=== PATIENT | male | born 1985 | race African-American/Black ===

== ENCOUNTER 2016-12-11 16:59 | Inpatient (IN) | payer MEDICAID ==
[~2016-12-11] VITALS: Ht 175.3 cm; Wt 90.3 kg
[~2016-12-11 16:59] MED LIST: CLON0.1T PO; LABE100T PO; LORA2TAB2 PO
[2016-12-11] MEDS ORDERED: ONDANSETRON HCL 4MG/2ML VIAL IV STA (17:23)
[2016-12-11] MEDS ORDERED: KETOROLAC 30MG/ML VIAL IV STA (17:23)
[2016-12-11 18:13] LABS: HEMATOCRIT. 29.2 % (42.0-52.0); HEMOGLOBIN. 9.7 g/dL (14.0-18.0); MEAN CORPUSCULAR HEMOGLOBIN 27.9 pg (28.0-32.0); MEAN CORPUSCULAR VOLUME 84.3 fL (80.0-94.0); MEAN PLATELET VOLUME 9.6 fl (7.4-10.4); PLATELET 121 x1000/uL (130-400); RED BLOOD CELL COUNT 3.46 mill/uL (4.7-6.1); RED CELL DISTRIBUTION WIDTH 15.5 % (11.6-14.6)
[2016-12-11] MEDS ORDERED: LORAZEPAM 2MG/ML CPJ IV ONE (18:15)
[2016-12-11 18:20] LABS: INR 1.1; PROTHROMBIN TIME 11.9 sec (9.4-11.6)
[2016-12-11 18:27] LABS: CARBON DIOXIDE 29 mEq/L (21-32); CHLORIDE 97 mEq/L (98-107)
[2016-12-11] MEDS ORDERED: ONDANSETRON HCL 4MG/2ML VIAL IV ONE (19:00)
[2016-12-11] MEDS ORDERED: MORPHINE SULFATE 4 MG/ML CPJ (NOT FOR IM USE) IV ONE ×2 (19:00→21:00)
[2016-12-11 19:17] LABS: PLATELET ESTIMATE SLIGHTLY DECREASED
[2016-12-11] MEDS ORDERED: HYDRALAZINE 20MG/ML VIAL IV ONE (19:30)
[2016-12-11] MEDS ORDERED: KCL 10MEQ/50ML PREMIX 100 ML IV SCH (19:45)
[2016-12-11] MEDS ORDERED: METOCLOPRAMIDE HCL 10MG/2ML VIAL IV ONE (21:00)
[2016-12-12] VITALS (10 sets, daily range): BP systolic 148–200; BP diastolic 78–114
[2016-12-12] MEDS ORDERED: ONDANSETRON HCL 4MG/2ML VIAL IV PRN (00:15)
[2016-12-12] MEDS ORDERED: NITROGLYCERIN OINT 1GM/INCH UDPKT TD SCH (01:00)
[2016-12-12] MEDS: HYDROMORPHONE HCL/PF 2MG/ML CPJ IV PRN ×6 (01:11→21:48)
[2016-12-12] MEDS: HYDRALAZINE 20MG/ML VIAL IV PRN ×2 (01:19→06:27)
[2016-12-12 07:26] LABS: BASOPHILS % 0.3 % (0.0-2.0); EOSINOPHILS % 0.2 % (0.0-5.0); HEMATOCRIT. 27.7 % (42.0-52.0); HEMOGLOBIN. 9.1 g/dL (14.0-18.0); LYMPHOCYTES % 12.7 % (20.0-50.0); MEAN CORPUSCULAR VOLUME 85.4 fL (80.0-94.0); MEAN PLATELET VOLUME 10.1 fl (7.4-10.4); MONOCYTES % 10.1 % (2.0-8.0); NEUTROPHILS % 76.7 % (40.0-76.0); PLATELET 103 x1000/uL (130-400); RED BLOOD CELL COUNT 3.24 mill/uL (4.7-6.1); RED CELL DISTRIBUTION WIDTH 15.9 % (11.6-14.6)
[2016-12-12 07:55] LABS: CHLORIDE 96 mEq/L (98-107)
[2016-12-12 08:21] LABS: CARBON DIOXIDE 28 mEq/L (21-32); CREATINE KINASE 177 IU/L (39-308); CREATINE KINASE MB FRACTION 4.6 ng/mL (0.5-3.6)
[2016-12-12 08:33] LABS: TROPONIN I 0.41 ng/mL (0.00-0.04)
[2016-12-12] MEDS ORDERED: HYDR100T26 PO (09:32)
[2016-12-12] MEDS ORDERED: LABE100T PO (09:33)
[2016-12-12] MEDS ORDERED: LABETALOL HCL 200MG TABLET PO SCH (09:45)
[2016-12-12] MEDS: HYDRALAZINE HCL 100MG TABLET PO SCH ×2 (10:00→21:33)
[2016-12-12] MEDS ORDERED: LABETALOL HCL 200MG TABLET PO NR (10:15)
[2016-12-12] MEDS: NIFEDIPINE XL 30MG TAB PO SCH (13:35)
[2016-12-12] MEDS: PANTOPRAZOLE SODIUM 40 MG/VIAL IV SCH (14:30)
[2016-12-12] MEDS ORDERED: LABETALOL HCL 100MG TABLET PO SCH (21:00)
[2016-12-12] MEDS: LABETALOL HCL 200MG TABLET PO SCH (21:32)
[2016-12-12] MEDS ORDERED: DIPHENHYDRAMINE 50MG/ML VIAL IV NR (23:23)
[2016-12-13] VITALS (8 sets, daily range): BP systolic 152–199; BP diastolic 81–113
[2016-12-13] MEDS: HYDROMORPHONE HCL/PF 2MG/ML CPJ IV PRN ×4 (05:28→20:45)
[2016-12-13] MEDS: NIFEDIPINE XL 30MG TAB PO SCH (08:48)
[2016-12-13] MEDS: LABETALOL HCL 200MG TABLET PO SCH ×3 (08:48→20:30)
[2016-12-13] MEDS: HYDRALAZINE HCL 100MG TABLET PO SCH ×3 (08:48→20:30)
[2016-12-13] MEDS: PANTOPRAZOLE SODIUM 40 MG/VIAL IV SCH (09:15)
[2016-12-13] MEDS: HYDRALAZINE 20MG/ML VIAL IV PRN (09:28)
[2016-12-13] MEDS ORDERED: SIMETHICONE 40 MG/0.6 ML 30ML ONE ×2 (09:59→16:03)
[2016-12-13] MEDS ORDERED: FENTANYL CITRATE/PF 50MCG/ML 2ML VIAL ONE (09:59)
[2016-12-13] MEDS ORDERED: MIDAZOLAM HCL 5 MG/5 ML VIAL ONE (09:59)
[2016-12-13] MEDS ORDERED: FENTANYL CITRATE/PF 50MCG/ML 2ML VIAL IV PRN (10:31)
[2016-12-13] MEDS ORDERED: MIDAZOLAM HCL 5 MG/5 ML VIAL IV PRN (10:31)
[2016-12-13] MEDS ORDERED: SODIUM CHLORIDE 0.9% 10ML VIAL ONE (16:03)
[2016-12-14] VITALS (11 sets, daily range): BP systolic 139–202; BP diastolic 86–114
[2016-12-14] MEDS: HYDROMORPHONE HCL/PF 2MG/ML CPJ IV PRN ×6 (01:02→22:15)
[2016-12-14 07:36] LABS: BASOPHILS % 0.5 % (0.0-2.0); EOSINOPHILS % 3.6 % (0.0-5.0); HEMATOCRIT. 26.1 % (42.0-52.0); HEMOGLOBIN. 8.6 g/dL (14.0-18.0); LYMPHOCYTES % 19.7 % (20.0-50.0); MEAN CORPUSCULAR HEMOGLOBIN 27.8 pg (28.0-32.0); MEAN CORPUSCULAR VOLUME 84.6 fL (80.0-94.0); MONOCYTES % 12.1 % (2.0-8.0); NEUTROPHILS % 64.1 % (40.0-76.0); PLATELET 101 x1000/uL (130-400); RED BLOOD CELL COUNT 3.08 mill/uL (4.7-6.1); RED CELL DISTRIBUTION WIDTH 15.6 % (11.6-14.6)
[2016-12-14] MEDS: HYDRALAZINE HCL 100MG TABLET PO SCH ×3 (08:09→21:06)
[2016-12-14] MEDS: NIFEDIPINE XL 60MG TAB PO SCH ×3 (08:09→21:04)
[2016-12-14] MEDS: PANTOPRAZOLE SODIUM 40 MG/VIAL IV SCH ×2 (08:09→10:09)
[2016-12-14] MEDS: LABETALOL HCL 200MG TABLET PO SCH ×3 (08:09→21:13)
[2016-12-14] MEDS: METOCLOPRAMIDE HCL 10MG/2ML VIAL IV SCH ×2 (13:33→21:06)
[2016-12-14] MEDS: LOSARTAN POTASSIUM 100 MG TABLET PO SCH (15:07)
[2016-12-14] MEDS: HYDRALAZINE 20MG/ML VIAL IV PRN (18:27)
[2016-12-14] MEDS ORDERED: EPOETIN ALFA 10000UNITS/ML VIAL SUBCUT SCH (21:00)
[2016-12-15 02:00] VITALS: BP 175/107
[2016-12-15] MEDS: HYDROMORPHONE HCL/PF 2MG/ML CPJ IV PRN ×2 (02:24→06:03)
[2016-12-15 04:00] VITALS: BP 158/106
[2016-12-15] MEDS: METOCLOPRAMIDE HCL 10MG/2ML VIAL IV SCH (05:52)
[2016-12-15 06:00] VITALS: BP 169/102
[2016-12-15 08:00] VITALS: BP 152/97
[2016-12-15] MEDS: HYDRALAZINE HCL 100MG TABLET PO SCH (08:07)
[2016-12-15] MEDS: LABETALOL HCL 200MG TABLET PO SCH (08:07)
[2016-12-15] MEDS: NIFEDIPINE XL 60MG TAB PO SCH (08:07)
[2016-12-15] MEDS: PANTOPRAZOLE SODIUM 40 MG/VIAL IV SCH (08:07)
[2016-12-15] MEDS: LOSARTAN POTASSIUM 100 MG TABLET PO SCH (08:08)
[2016-12-15] MEDS ORDERED: HYDROCODONE/ACETAMINOPHEN 5/325MG TABLET PO PRN (09:15)
[2016-12-15 10:00] VITALS: BP 164/85
== END 2016-12-15 12:40 | disposition left against medical advice (07) | DRG 48 ==
LOC: ER 17:11 → 5EST 20:34 → ENRESERV 22:11
PROVIDERS: ADMIT Internal Medicine; ATTEND Internal Medicine
PROC: 0DB68ZX Excision of Stomach, Via Natural or Artificial Opening Endoscopic, Diagnostic (ICD-10-PCS; principal; 2016-12-13 10:00)
DX: E11.43 Type 2 diabetes mellitus with diabetic autonomic (poly)neuropathy (principal); J96.91 Respiratory failure, unspecified with hypoxia; N18.6 End stage renal disease; K92.0 Hematemesis; E11.21 Type 2 diabetes mellitus with diabetic nephropathy; I12.0 Hypertensive chronic kidney disease with stage 5 chronic kidney disease or end stage renal disease; K29.60 Other gastritis without bleeding; K31.84 Gastroparesis; E87.70 Fluid overload, unspecified; I16.0 Hypertensive urgency; E11.22 Type 2 diabetes mellitus with diabetic chronic kidney disease; D63.8 Anemia in other chronic diseases classified elsewhere; Z99.2 Dependence on renal dialysis; J45.909 Unspecified asthma, uncomplicated; E66.3 Overweight; K44.9 Diaphragmatic hernia without obstruction or gangrene; Z82.49 Family history of ischemic heart disease and other diseases of the circulatory system; G89.4 Chronic pain syndrome; Z87.19 Personal history of other diseases of the digestive system; Z91.19 Patient's noncompliance with other medical treatment and regimen; Z88.0 Allergy status to penicillin; Q27.30 Arteriovenous malformation, site unspecified; Z86.718 Personal history of other venous thrombosis and embolism; K55.20 Angiodysplasia of colon without hemorrhage
CPT/HCPCS: 36415; 71010; 74176; 80048; 80053; 82550; 82553; 83690; 84484; 85025; 85610; 88305; 88313; 93005; 93306; 96374; 96375; 96376; 99291; A4216; C9113; J0360; J0885; J1170; J1200; J1885; J2060; J2250; J2270; J2405; J2765; J3010; J3480; J7030

== ENCOUNTER 2017-08-19 20:23 | Inpatient (IN) | payer MEDICAID ==
[~2017-08-19] VITALS: Ht 172.7 cm; Wt 81.6 kg
[~2017-08-19 20:23] MED LIST changes: -CLON0.1T PO; +HYDR100T26 PO; -LORA2TAB2 PO
[2017-08-19] MEDS ORDERED: ONDANSETRON HCL 4MG/2ML VIAL IV STA (23:25)
[2017-08-19] MEDS ORDERED: MORPHINE SULFATE 4 MG/ML CPJ (NOT FOR IM USE) IV STA (23:25)
[2017-08-20 00:01] LABS: HEMATOCRIT. 21.9 % (42.0-52.0); HEMOGLOBIN. 7.3 g/dL (14.0-18.0); MEAN CORPUSCULAR HEMOGLOBIN 29.3 pg (28.0-32.0); MEAN CORPUSCULAR VOLUME 87.4 fL (80.0-94.0); RED CELL DISTRIBUTION WIDTH 16.4 % (11.6-14.6)
[2017-08-20] MEDS ORDERED: DIPHENHYDRAMINE 50MG/ML VIAL IV ONE (00:45)
[2017-08-20 01:06] LABS: MEAN PLATELET VOLUME 9.9 fl (7.4-10.4); PLATELET 139 x1000/uL (130-400)
[2017-08-20 01:19] LABS: PLATELET ESTIMATE NORMAL
[2017-08-20] MEDS ORDERED: HYDROCODONE/ACETAMINOPHEN 5/325MG TABLET PO ONE (03:45)
[2017-08-20 09:23] VITALS: BP 196/117
[2017-08-20 09:34] VITALS: BP 196/117
[2017-08-20] MEDS ORDERED: IPRATROPIUM/ALBUTEROL 0.5-3(2.5)MG/3ML NEB HHN PRN (10:00)
[2017-08-20] MEDS ORDERED: HYDROCODONE/ACETAMINOPHEN 5/325MG TABLET PO PRN (10:00)
[2017-08-20] MEDS ORDERED: ONDANSETRON HCL 4MG/2ML VIAL IV PRN (10:00)
[2017-08-20] MEDS ORDERED: MORPHINE SULFATE 2 MG/ML CPJ (NOT FOR IM USE) IV PRN (10:00)
[2017-08-20] MEDS: HEPARIN 5000 UNITS/ML VIAL SUBCUT SCH ×2 (10:15→21:00)
[2017-08-20] MEDS: MORPHINE SULFATE 4 MG/ML CPJ (NOT FOR IM USE) IV PRN ×3 (10:42→23:27)
[2017-08-20] MEDS: LABETALOL HCL 100MG TABLET PO SCH ×2 (11:30→21:32)
[2017-08-20] MEDS: HYDRALAZINE HCL 100MG TABLET PO SCH ×2 (11:30→21:32)
[2017-08-20 12:08] VITALS: BP 179/112
[2017-08-20] MEDS ORDERED: DIPHENHYDRAMINE 50MG/ML VIAL IV NR (13:40)
[2017-08-20 16:08] VITALS: BP 188/99
[2017-08-20] MEDS: CLONIDINE 0.1MG TABLET PO PRN (17:21)
[2017-08-20 20:00] VITALS: BP 179/99
[2017-08-20] MEDS: EPOETIN ALFA 10000UNITS/ML VIAL SUBCUT SCH (21:00)
[2017-08-21] VITALS: BP 137/77
[2017-08-21 04:00] VITALS: BP 147/82
[2017-08-21] MEDS: MORPHINE SULFATE 4 MG/ML CPJ (NOT FOR IM USE) IV PRN ×3 (05:30→18:35)
[2017-08-21] MEDS: OMEPRAZOLE 20MG CAPSULE EXTENDED RELEASE PO SCH (06:25)
[2017-08-21 08:00] VITALS: BP 163/70
[2017-08-21] MEDS: HEPARIN 5000 UNITS/ML VIAL SUBCUT SCH ×2 (09:00→21:00)
[2017-08-21] MEDS ORDERED: DIPHENHYDRAMINE 50MG/ML VIAL IV NR ×2 (09:30→10:00)
[2017-08-21 12:00] VITALS: BP 192/113
[2017-08-21 15:30] VITALS: BP 194/107
[2017-08-21] MEDS: HYDRALAZINE HCL 100MG TABLET PO SCH ×2 (16:12→22:42)
[2017-08-21] MEDS: LABETALOL HCL 100MG TABLET PO SCH ×2 (16:13→22:42)
[2017-08-21] MEDS ORDERED: MINOXIDIL 2.5MG TABLET PO SCH ×2 (17:30→21:15)
[2017-08-21] MEDS: CLONIDINE 0.1MG TABLET PO PRN (18:36)
[2017-08-21] MEDS ORDERED: DIPHENHYDRAMINE 50MG/ML VIAL IV SCH (21:15)
[2017-08-21 21:20] VITALS: BP 178/96
[2017-08-21 23:57] LABS: BASOPHILS % 0.7 % (0.0-2.0); EOSINOPHILS % 4.5 % (0.0-5.0); HEMATOCRIT. 24.3 % (42.0-52.0); HEMOGLOBIN. 8.1 g/dL (14.0-18.0); LYMPHOCYTES % 19.3 % (20.0-50.0); MEAN CORPUSCULAR HEMOGLOBIN 29.7 pg (28.0-32.0); MEAN CORPUSCULAR VOLUME 88.7 fL (80.0-94.0); MEAN PLATELET VOLUME 10.3 fl (7.4-10.4); MONOCYTES % 6.9 % (2.0-8.0); NEUTROPHILS % 68.6 % (40.0-76.0); PLATELET 125 x1000/uL (130-400); RED BLOOD CELL COUNT 2.74 mill/uL (4.7-6.1); RED CELL DISTRIBUTION WIDTH 16.3 % (11.6-14.6)
[2017-08-22] VITALS: BP 156/95
[2017-08-22 00:28] LABS: CREATINE KINASE MB FRACTION 3.5 ng/mL (0.5-3.6)
[2017-08-22] MEDS: MORPHINE SULFATE 4 MG/ML CPJ (NOT FOR IM USE) IV PRN ×4 (00:53→20:02)
[2017-08-22 06:29] VITALS: BP 144/86
[2017-08-22] MEDS: OMEPRAZOLE 20MG CAPSULE EXTENDED RELEASE PO SCH (06:53)
[2017-08-22] MEDS: HEPARIN 5000 UNITS/ML VIAL SUBCUT SCH ×2 (09:00→21:00)
[2017-08-22] MEDS: MINOXIDIL 2.5MG TABLET PO SCH (09:00)
[2017-08-22 13:00] VITALS: BP 154/104
[2017-08-22] MEDS: HYDRALAZINE HCL 100MG TABLET PO SCH ×2 (13:45→23:58)
[2017-08-22] MEDS: LABETALOL HCL 100MG TABLET PO SCH ×2 (13:45→23:58)
[2017-08-22 16:00] VITALS: BP 175/88
[2017-08-22 20:00] VITALS: BP 181/103
[2017-08-22] MEDS: CLONIDINE 0.1MG TABLET PO PRN (20:01)
[2017-08-22] MEDS: DIPHENHYDRAMINE 50MG/ML VIAL IV PRN (21:10)
[2017-08-23] VITALS: BP 138/92
[2017-08-23 02:30] VITALS: BP 152/90
[2017-08-23] MEDS: MORPHINE SULFATE 4 MG/ML CPJ (NOT FOR IM USE) IV PRN ×4 (02:30→20:40)
[2017-08-23] MEDS: OMEPRAZOLE 20MG CAPSULE EXTENDED RELEASE PO SCH (06:20)
[2017-08-23 08:00] VITALS: BP 157/81
[2017-08-23] MEDS: MINOXIDIL 2.5MG TABLET PO SCH (09:00)
[2017-08-23] MEDS: HYDRALAZINE HCL 100MG TABLET PO SCH (09:00)
[2017-08-23] MEDS: LABETALOL HCL 100MG TABLET PO SCH (09:00)
[2017-08-23] MEDS: HEPARIN 5000 UNITS/ML VIAL SUBCUT SCH ×2 (09:00→21:00)
[2017-08-23 12:00] VITALS: BP 151/94
[2017-08-23 16:00] VITALS: BP 160/88
[2017-08-23] MEDS: DIPHENHYDRAMINE 50MG/ML VIAL IV PRN (20:40)
[2017-08-23 20:58] VITALS: BP 187/111
[2017-08-23] MEDS: EPOETIN ALFA 10000UNITS/ML VIAL SUBCUT SCH (21:00)
[2017-08-24] MEDS: LABETALOL HCL 100MG TABLET PO SCH ×2 (00:26→09:00)
[2017-08-24] MEDS: CLONIDINE 0.1MG TABLET PO PRN (00:26)
[2017-08-24] MEDS: HYDRALAZINE HCL 100MG TABLET PO SCH ×2 (00:27→09:00)
[2017-08-24 00:35] VITALS: BP 205/111
[2017-08-24] MEDS: MORPHINE SULFATE 4 MG/ML CPJ (NOT FOR IM USE) IV PRN (02:47)
[2017-08-24] MEDS: DIPHENHYDRAMINE 50MG/ML VIAL IV PRN (02:56)
[2017-08-24 04:00] VITALS: BP 130/80
[2017-08-24] MEDS: OMEPRAZOLE 20MG CAPSULE EXTENDED RELEASE PO SCH (07:20)
[2017-08-24 08:56] VITALS: BP 157/93
[2017-08-24] MEDS: MINOXIDIL 2.5MG TABLET PO SCH (09:00)
[2017-08-24] MEDS: HEPARIN 5000 UNITS/ML VIAL SUBCUT SCH (09:00)
[2017-08-24] MEDS ORDERED: HYDROCODONE/ACETAMINOPHEN 5/325MG TABLET PO PRN (10:30)
[2017-08-24 12:28] VITALS: BP 157/93
== END 2017-08-24 12:45 | disposition home or self-care (01) | DRG 194 ==
LOC: ER 21:02 → 6WST 08-20 03:26 → EDBEDREQ 08-20 03:29 → EDBEDREQTM 08-20 03:29 → ENRESERV 08-20 07:26
PROVIDERS: ADMIT Internal Medicine; ATTEND Internal Medicine
PROC: 5A1D70Z Performance of Urinary Filtration, Intermittent, Less than 6 Hours Per Day (ICD-10-PCS; principal; 2017-08-20)
PROC: 5A1D70Z Performance of Urinary Filtration, Intermittent, Less than 6 Hours Per Day (ICD-10-PCS; 2017-08-23)
DX: I13.2 Hypertensive heart and chronic kidney disease with heart failure and with stage 5 chronic kidney disease, or end stage renal disease (principal); N18.6 End stage renal disease; E11.21 Type 2 diabetes mellitus with diabetic nephropathy; E11.22 Type 2 diabetes mellitus with diabetic chronic kidney disease; F11.20 Opioid dependence, uncomplicated; R07.89 Other chest pain; K31.84 Gastroparesis; E11.43 Type 2 diabetes mellitus with diabetic autonomic (poly)neuropathy; E87.5 Hyperkalemia; I16.0 Hypertensive urgency; D63.8 Anemia in other chronic diseases classified elsewhere; E66.3 Overweight; G89.4 Chronic pain syndrome; J45.909 Unspecified asthma, uncomplicated; Z87.19 Personal history of other diseases of the digestive system; Z91.15 Patient's noncompliance with renal dialysis; Z99.2 Dependence on renal dialysis; Z88.0 Allergy status to penicillin; Z79.899 Other long term (current) drug therapy; Z68.27 Body mass index [BMI] 27.0-27.9, adult; I50.33 Acute on chronic diastolic (congestive) heart failure
CPT/HCPCS: 36415; 71045; 80048; 82550; 82553; 83880; 84484; 85025; 93005; J0885; J1200; J1644; J2270; J2405; J7030; J7620

== ENCOUNTER 2018-01-04 03:03 | Inpatient (IN) | payer MEDICAID ==
[~2018-01-04] VITALS: Ht 175.3 cm; Wt 82.6 kg
[2018-01-04] VITALS (11 sets, daily range): BP systolic 160–239; BP diastolic 93–139
[~2018-01-04 03:03] MED LIST changes: -LABE100T PO; +LABE100T5 PO; +LOSA100T3 PO; +NIFE60TA64 PO; +SEVE800T8 PO
[2018-01-04] MEDS ORDERED: MORPHINE SULFATE 4 MG/ML CPJ (NOT FOR IM USE) IV STA (03:39)
[2018-01-04] MEDS ORDERED: DIPHENHYDRAMINE 50MG/ML VIAL IV ONE (03:45)
[2018-01-04] MEDS ORDERED: ONDANSETRON HCL 4MG/2ML INJ IV ONE (03:45)
[2018-01-04] MEDS ORDERED: ASPIRIN 81MG TABLET PO ONE (04:00)
[2018-01-04 06:41] LABS: BASOPHILS % 0.8 % (0.0-2.0); EOSINOPHILS % 4.5 % (0.0-5.0); HEMATOCRIT. 23.8 % (42.0-52.0); HEMOGLOBIN. 8.1 g/dL (14.0-18.0); LYMPHOCYTES % 10.5 % (20.0-50.0); MEAN CORPUSCULAR HEMOGLOBIN 29.8 pg (28.0-32.0); MEAN CORPUSCULAR VOLUME 87.3 fL (80.0-94.0); MEAN PLATELET VOLUME 9.7 fl (7.4-10.4); NEUTROPHILS % 76.2 % (40.0-76.0); PLATELET 103 x1000/uL (130-400); RED BLOOD CELL COUNT 2.73 mill/uL (4.7-6.1); RED CELL DISTRIBUTION WIDTH 16.2 % (11.6-14.6)
[2018-01-04 06:44] LABS: CHLORIDE 98 mEq/L (98-107)
[2018-01-04] MEDS ORDERED: CLONIDINE 0.2MG TABLET PO ONE (06:45)
[2018-01-04] MEDS ORDERED: ACETAMINOPHEN 650MG SUPP PR PRN (09:00)
[2018-01-04] MEDS ORDERED: NICARDIPINE 100 MG in SODIUM CHLORIDE 0.9% 60 ML IV PRN (09:00)
[2018-01-04] MEDS ORDERED: ACETAMINOPHEN 325MG TABLET PO PRN (09:00)
[2018-01-04] MEDS ORDERED: HYDROCODONE/ACETAMINOPHEN 5/325MG TABLET PO PRN (09:00)
[2018-01-04] MEDS ORDERED: ACETAMINOPHEN 650MG/20.3ML UDC GT PRN (09:00)
[2018-01-04] MEDS ORDERED: ONDANSETRON HCL 4MG/2ML INJ IV PRN (09:00)
[2018-01-04] MEDS: HYDROMORPHONE HCL/PF 2MG/ML CPJ IV PRN ×3 (11:58→21:13)
[2018-01-04] MEDS ORDERED: NICARDIPINE 20MG/200ML PREMIX 200 ML IV PRN (12:00)
[2018-01-04] MEDS ORDERED: LIDOCAINE HCL 1% 20ML VIAL (Pyxis) INJ ONE (14:57)
[2018-01-04] MEDS ORDERED: SODIUM BICARBONATE 4% (2.4MEQ) 5ML VIAL IV ONE (14:57)
[2018-01-04] MEDS: DIPHENHYDRAMINE 50MG/ML VIAL IV PRN ×2 (16:10→21:10)
[2018-01-04 17:54] LABS: CREATINE KINASE MB FRACTION 4.6 ng/mL (0.5-3.6)
[2018-01-04] MEDS: DILTIAZEM HCL 90MG TABLET PO SCH (18:00)
[2018-01-04] MEDS: CLONIDINE 0.2MG TABLET PO PRN (18:06)
[2018-01-04 19:36] LABS: AMYLASE 90 IU/L (25-115)
[2018-01-04] MEDS ORDERED: HYDROMORPHONE HCL/PF 2MG/ML CPJ IV ONE (20:30)
[2018-01-04] MEDS ORDERED: HYDROMORPHONE HCL/PF 2MG/ML CPJ IV SCH (21:13)
[2018-01-04] MEDS: CLONIDINE 0.2MG TABLET PO SCH (22:13)
[2018-01-05] VITALS (22 sets, daily range): BP systolic 100–226; BP diastolic 54–171
[2018-01-05] MEDS: HYDROMORPHONE HCL/PF 2MG/ML CPJ IV PRN ×4 (03:00→21:17)
[2018-01-05] MEDS: DIPHENHYDRAMINE 50MG/ML VIAL IV PRN ×4 (03:01→21:16)
[2018-01-05] MEDS: DILTIAZEM HCL 90MG TABLET PO SCH ×4 (06:00→17:11)
[2018-01-05] MEDS: CLONIDINE 0.2MG TABLET PO SCH ×3 (06:45→21:15)
[2018-01-05] MEDS: HYDRALAZINE HCL 100MG TABLET PO SCH ×2 (09:30→21:15)
[2018-01-05 10:16] LABS: BASOPHILS % 0.7 % (0.0-2.0); EOSINOPHILS % 3.9 % (0.0-5.0); LYMPHOCYTES % 7.3 % (20.0-50.0); MEAN CORPUSCULAR HEMOGLOBIN 29.3 pg (28.0-32.0); MEAN CORPUSCULAR VOLUME 88.6 fL (80.0-94.0); MEAN PLATELET VOLUME 9.2 fl (7.4-10.4); MONOCYTES % 6.1 % (2.0-8.0); PLATELET 81 x1000/uL (130-400); RED BLOOD CELL COUNT 2.04 mill/uL (4.7-6.1); RED CELL DISTRIBUTION WIDTH 16.4 % (11.6-14.6)
[2018-01-05 10:25] LABS: INR 1.3; PARTIAL THROMBOPLASTIN TIME 27.5 sec (23.4-31.0); PROTHROMBIN TIME 13.4 sec (9.1-11.1)
[2018-01-05 10:39] LABS: HEMATOCRIT. 18.1 % (42.0-52.0)
[2018-01-05 11:17] LABS: CHLORIDE 101 mEq/L (98-107)
[2018-01-05 11:31] LABS: LDL CHOLESTEROL 28 mg/dL (5-100)
[2018-01-05 11:32] LABS: CREATINE KINASE 223 IU/L (39-308)
[2018-01-05 11:33] LABS: CREATINE KINASE MB FRACTION 3.3 ng/mL (0.5-3.6); HDL CHOLESTEROL 30 mg/dL (40-59); T4 FREE 1.04 ng/dL (0.76-1.46)
[2018-01-05] MEDS: CLONIDINE 0.2MG TABLET PO PRN (18:14)
[2018-01-05] MEDS: EPOETIN ALFA 10000UNITS/ML VIAL SUBCUT SCH ×2 (21:00→21:15)
[2018-01-06 00:12] VITALS: BP_SYST 155; BP_SYST 90; BP_DIAS 58; BP_DIAS 84
[2018-01-06] MEDS: DIPHENHYDRAMINE 50MG/ML VIAL IV PRN ×5 (03:29→23:46)
[2018-01-06] MEDS: HYDROMORPHONE HCL/PF 2MG/ML CPJ IV PRN ×5 (03:29→23:46)
[2018-01-06 04:00] VITALS: BP 137/66
[2018-01-06] MEDS: DILTIAZEM HCL 90MG TABLET PO SCH ×4 (05:55→18:00)
[2018-01-06] MEDS: CLONIDINE 0.2MG TABLET PO SCH ×3 (05:55→23:46)
[2018-01-06 07:30] VITALS: BP 156/71
[2018-01-06] MEDS: HYDRALAZINE HCL 100MG TABLET PO SCH ×2 (09:21→23:48)
[2018-01-06 12:00] VITALS: BP 127/84
[2018-01-06 19:30] VITALS: BP 169/93
[2018-01-06 19:52] LABS: BASOPHILS % 0.5 % (0.0-2.0); EOSINOPHILS % 4.8 % (0.0-5.0); LYMPHOCYTES % 12.7 % (20.0-50.0); MEAN CORPUSCULAR HEMOGLOBIN 29.5 pg (28.0-32.0); MEAN PLATELET VOLUME 9.1 fl (7.4-10.4); MONOCYTES % 9.3 % (2.0-8.0); NEUTROPHILS % 72.7 % (40.0-76.0); RED BLOOD CELL COUNT 2.34 mill/uL (4.7-6.1); RED CELL DISTRIBUTION WIDTH 16.3 % (11.6-14.6)
[2018-01-06 20:06] LABS: HEMATOCRIT. 20.3 % (42.0-52.0); HEMOGLOBIN. 6.9 g/dL (14.0-18.0); PLATELET 49 x1000/uL (130-400)
[2018-01-06 20:11] LABS: PHOSPHORUS 5.3 mg/dL (2.5-4.9)
[2018-01-06 21:30] VITALS: BP 200/94
[2018-01-07 03:42] VITALS: BP 200/94
[2018-01-07] MEDS: DIPHENHYDRAMINE 50MG/ML VIAL IV PRN ×5 (03:46→20:38)
[2018-01-07] MEDS: HYDROMORPHONE HCL/PF 2MG/ML CPJ IV PRN ×5 (03:46→20:39)
[2018-01-07] MEDS: DILTIAZEM HCL 90MG TABLET PO SCH ×4 (05:21→17:50)
[2018-01-07] MEDS: CLONIDINE 0.2MG TABLET PO SCH ×3 (05:21→22:00)
[2018-01-07 08:00] VITALS: BP 189/99
[2018-01-07] MEDS: HYDRALAZINE HCL 100MG TABLET PO SCH ×3 (08:00→22:00)
[2018-01-07 12:00] VITALS: BP 189/98
[2018-01-07 14:05] LABS: PLATELET ESTIMATE MARKEDLY DECREASED
[2018-01-07 16:00] VITALS: BP 200/123
[2018-01-07 20:00] VITALS: BP 254/132
[2018-01-07] MEDS: CLONIDINE 0.2MG TABLET PO PRN (20:33)
[2018-01-07] MEDS: EPOETIN ALFA 10000UNITS/ML VIAL SUBCUT SCH (21:00)
[2018-01-08] VITALS: BP 224/96
[2018-01-08] MEDS: DIPHENHYDRAMINE 50MG/ML VIAL IV PRN ×6 (00:40→22:57)
[2018-01-08] MEDS: HYDROMORPHONE HCL/PF 2MG/ML CPJ IV PRN ×6 (00:43→22:58)
[2018-01-08 04:00] VITALS: BP 222/111
[2018-01-08] MEDS: HYDRALAZINE HCL 100MG TABLET PO SCH ×5 (05:24→22:57)
[2018-01-08] MEDS: DILTIAZEM HCL 90MG TABLET PO SCH ×2 (05:24)
[2018-01-08] MEDS: CLONIDINE 0.2MG TABLET PO SCH ×3 (05:25→22:00)
[2018-01-08] MEDS: LABETALOL HCL 200MG TABLET PO SCH ×2 (10:07→20:17)
[2018-01-08] MEDS: NIFEDIPINE XL 90MG TAB PO SCH (10:15)
[2018-01-08 12:00] VITALS: BP 210/106
[2018-01-08] MEDS ORDERED: LORAZEPAM 1MG TABLET PO NR (14:21)
[2018-01-08 20:00] VITALS: BP 223/105
[2018-01-09] MEDS: HYDROMORPHONE HCL/PF 2MG/ML CPJ IV PRN ×4 (03:18→21:22)
[2018-01-09] MEDS: DIPHENHYDRAMINE 50MG/ML VIAL IV PRN ×4 (03:18→21:22)
[2018-01-09] MEDS: CLONIDINE 0.2MG TABLET PO PRN (03:28)
[2018-01-09] MEDS: HYDRALAZINE HCL 100MG TABLET PO SCH ×3 (05:51→21:37)
[2018-01-09] MEDS: CLONIDINE 0.2MG TABLET PO SCH ×4 (05:51→21:35)
[2018-01-09 07:30] VITALS: BP 201/105
[2018-01-09] MEDS: NIFEDIPINE XL 90MG TAB PO SCH (08:09)
[2018-01-09] MEDS: LABETALOL HCL 200MG TABLET PO SCH ×2 (08:09→21:00)
[2018-01-09 12:00] VITALS: BP 244/135
[2018-01-10] MEDS: DIPHENHYDRAMINE 50MG/ML VIAL IV PRN ×2 (03:28→09:01)
[2018-01-10] MEDS: HYDROMORPHONE HCL/PF 2MG/ML CPJ IV PRN ×2 (03:29→09:02)
[2018-01-10] MEDS: HYDRALAZINE HCL 100MG TABLET PO SCH (05:29)
[2018-01-10] MEDS: CLONIDINE 0.2MG TABLET PO SCH (05:29)
[2018-01-10 08:40] VITALS: BP 257/142
[2018-01-10] MEDS: LABETALOL HCL 200MG TABLET PO SCH (09:00)
[2018-01-10] MEDS: NIFEDIPINE XL 90MG TAB PO SCH (09:00)
[2018-01-10] MEDS: CLONIDINE 0.2MG TABLET PO PRN (09:03)
== END 2018-01-10 10:15 | disposition left against medical advice (07) | DRG 180 ==
LOC: ER 03:03 → 7WST 07:57 → EDBEDREQ 08:14 → ENRESERV 08:43 → CVICU 13:44 → 8WST 01-05 22:10
PROVIDERS: ADMIT Internal Medicine; ATTEND Internal Medicine
PROC: 5A1D70Z Performance of Urinary Filtration, Intermittent, Less than 6 Hours Per Day (ICD-10-PCS; principal; 2018-01-04)
PROC: 03Q Upper Arteries, Repair (ICD-10-PCS; 2018-01-04)
PROC: 05H533Z Insertion of Infusion Device into Right Subclavian Vein, Percutaneous Approach (ICD-10-PCS; 2018-01-04)
PROC: B546ZZA Ultrasonography of Right Subclavian Vein, Guidance (ICD-10-PCS; 2018-01-04)
PROC: 5A1D70Z Performance of Urinary Filtration, Intermittent, Less than 6 Hours Per Day (ICD-10-PCS; 2018-01-05)
PROC: 30233N1 Transfusion of Nonautologous Red Blood Cells into Peripheral Vein, Percutaneous Approach (ICD-10-PCS; 2018-01-05)
PROC: 5A1D70Z Performance of Urinary Filtration, Intermittent, Less than 6 Hours Per Day (ICD-10-PCS; 2018-01-06)
PROC: 5A1D70Z Performance of Urinary Filtration, Intermittent, Less than 6 Hours Per Day (ICD-10-PCS; 2018-01-08)
PROC: 5A1D70Z Performance of Urinary Filtration, Intermittent, Less than 6 Hours Per Day (ICD-10-PCS; 2018-01-09)
DX: I13.2 Hypertensive heart and chronic kidney disease with heart failure and with stage 5 chronic kidney disease, or end stage renal disease (principal); E11.21 Type 2 diabetes mellitus with diabetic nephropathy; E11.40 Type 2 diabetes mellitus with diabetic neuropathy, unspecified; D69.6 Thrombocytopenia, unspecified; K31.84 Gastroparesis; N18.6 End stage renal disease; E11.22 Type 2 diabetes mellitus with diabetic chronic kidney disease; T82.838A Hemorrhage due to vascular prosthetic devices, implants and grafts, initial encounter; Y84.1 Kidney dialysis as the cause of abnormal reaction of the patient, or of later complication, without mention of misadventure at the time of the procedure; E66.01 Morbid (severe) obesity due to excess calories; E87.5 Hyperkalemia; Z53.21 Procedure and treatment not carried out due to patient leaving prior to being seen by health care provider; G89.4 Chronic pain syndrome; D64.9 Anemia, unspecified; E11.43 Type 2 diabetes mellitus with diabetic autonomic (poly)neuropathy; S41.132A Puncture wound without foreign body of left upper arm, initial encounter; K92.2 Gastrointestinal hemorrhage, unspecified; I16.0 Hypertensive urgency; F40.240 Claustrophobia; Z53.29 Procedure and treatment not carried out because of patient's decision for other reasons; S40.021A Contusion of right upper arm, initial encounter; X58.XXXA Exposure to other specified factors, initial encounter; J45.909 Unspecified asthma, uncomplicated; Z79.84 Long term (current) use of oral hypoglycemic drugs; Z99.2 Dependence on renal dialysis; Z68.26 Body mass index [BMI] 26.0-26.9, adult; Z87.19 Personal history of other diseases of the digestive system; Z88.0 Allergy status to penicillin; Z91.19 Patient's noncompliance with other medical treatment and regimen; Z88.5 Allergy status to narcotic agent; Z79.899 Other long term (current) drug therapy; Y93.89 Activity, other specified; Y92.89 Other specified places as the place of occurrence of the external cause; Y99.8 Other external cause status; I50.30 Unspecified diastolic (congestive) heart failure; R07.9 Chest pain, unspecified
CPT/HCPCS: 36415; 36569; 71045; 76937; 80048; 80061; 82150; 82550; 82553; 83735; 83880; 84100; 84439; 84443; 84481; 84484; 86850; 86900; 86920; 93005; 93971; 96374; 96375; 99285; C1725; J0885; J1170; J1200; J2270; J2405; J3490; J7030; J7040; J7050; P9016